=== PATIENT | male | born 1965 | race Caucasian/White ===

== ENCOUNTER 2021-10-07 12:48 | Emergency (ER) | payer BC ==
[~2021-10-07] VITALS: Ht 182.9 cm; Wt 82.6 kg
--- NOTE | 2021-10-07 13:09 | NUR ---
BIB S/P LACERATION ON THE HEAD. PT TDAP IS NOT UP TO DATE PER PT. A&OX4, DENIES LOSING CONSCIOUSNESS. DR TIJERINA AT BEDSIDE.
[2021-10-07] MEDS ORDERED: TDAP [DIPH/PERTUSSIS/TET] 0.5 ML VIAL IM ONE (13:43)
[2021-10-07] MEDS: TDAP [DIPH/PERTUSSIS/TET] 0.5 ML VIAL IM ONE (13:48)
--- NOTE | 2021-10-07 14:09 | NUR ---
PT WALKED TO CT WITH ELECTRICIAN ELEVATOR MAINTENANCE AT SIDE.
[2021-10-07 15:15] VITALS: BP 142/98
--- NOTE | 2021-10-07 15:15 | NUR ---
Patient discharged to home in stable condition. Written and verbal after care instructions given. Patient verbalizes understanding of instruction.
== END 2021-10-07 15:16 | disposition home or self-care (01) ==
LOC: ER 12:51
DX: S01.01XA Laceration without foreign body of scalp, initial encounter (principal); I10 Essential (primary) hypertension; W22.8XXA Striking against or struck by other objects, initial encounter; Y93.89 Activity, other specified; Y92.89 Other specified places as the place of occurrence of the external cause; Y99.8 Other external cause status
CPT/HCPCS: 12001; 70450; 90471; 90715; 99284; A6403